=== PATIENT | female | born 1990 | race Caucasian/White ===

== ENCOUNTER → 2017-01-07 | Outpatient (CLI) | payer OTHER ==
[2017-01-07 19:15] LABS: CALCIUM OXALATE CRYSTALS LARGE; YEAST LIKE CELL URINE AUTO LARGE
--- NOTE | 2017-01-08 03:06 | REP ---
Clinical: Ureterolithiasis. Technique: Single supine view of the abdomen and pelvis. Findings: A 7 mm calcification overlies the right psoas muscle at the level of the L4 transverse process likely representing ureteral calculus. A 2 mm calcification is identified in the right belia pelvis likely representing phlebolith. Further evaluation of the urinary tract system is limited due to overlying bowel gas. No bowel obstruction. No organomegaly. Skeletal structures intact. Impression: Presumed 7 mm right ureteral calculus. Signed by Daron Queen MD 01/08/2017 02:57 A
== END ==
LOC: M SMT 15:48
PROVIDERS: ATTEND Nurse Practitioner Women's Health
DX: N13.2 Hydronephrosis with renal and ureteral calculous obstruction (principal)

== ENCOUNTER 2017-01-19 17:59 | Day surgery (SDC) | payer OTHER ==
[~2017-01-19] VITALS: Ht 160 cm; Wt 53.5 kg
[2017-01-19] MEDS ORDERED: HYDR-3713 PO (18:09)
[2017-01-19] MEDS ORDERED: [UNRECOGNIZED DRUG - OTHER] (18:09)
[2017-01-19] MEDS ORDERED: NS 1,000 ML IV SCH (18:57)
[2017-01-19] MEDS ORDERED: KETOROLAC 30 MG/ML VIAL (J1885) IV ONE (19:00)
[2017-01-19] MEDS ORDERED: MORPHINE 4 MG/ML 1ML SYRINGE IV ONE ×2 (19:00→20:30)
[2017-01-19] MEDS ORDERED: ONDANSETRON 4MG/2ML VIAL (J2405) IV ONE (19:00)
[2017-01-19 19:17] LABS: BASO % 0.3 % (0.0-1.0); EOS # 0.1 K/mm3 (0.0-0.50); EOS % 1.5 % (0.0-3.0); LARGE UNSTAINED CELL # 0.1 K/mm3 (0.0-0.4); LARGE UNSTAINED CELL % 1.3 % (0.0-4.0); LYMPH # 1.4 K/mm3 (1.5-6.5); MEAN CORPUSCULAR HEMOGLOBIN 31.5 pg (27.0-33.0); MEAN CORPUSCULAR HGB CONC 33.8 g/dl (32.0-36.5); MONO # 0.4 K/mm3 (0.0-0.8); MONO % 4.2 % (0.0-5.0); NEUTROPHILS # 7.4 K/mm3 (1.8-7.7); NEUTROPHILS % 77.8 % (36.0-66.0); PLATELET COUNT, AUTOMATED 251 k/mm3 (150-450); WHITE BLOOD COUNT 9.5 K/mm3 (4.0-10.0)
[2017-01-19 19:22] LABS: CALCIUM OXALATE CRYSTALS MODERATE
[2017-01-19 19:25] LABS: INR 0.97
[2017-01-19 19:37] LABS: CONTROL LINE HCG INT CTR LINE PRESENT
[2017-01-19 19:43] LABS: ALBUMIN 3.7 GM/DL (3.2-5.2); ALKALINE PHOSPHATASE 92 U/L (45-117); ALT/SGPT 21 U/L (12-78); AMYLASE 62 U/L (25-115); ANION GAP 8 MEQ/L (8-16); AST/SGOT 12 U/L (15-37); BILIRUBIN,DIRECT < 0.1 MG/DL (0.0-0.2); BILIRUBIN,TOTAL 0.3 MG/DL (0.2-1.0); BLOOD UREA NITROGEN 17 MG/DL (7-18); CALCIUM LEVEL 8.5 MG/DL (8.5-10.1); CARBON DIOXIDE LEVEL 26 MEQ/L (21-32); CHLORIDE LEVEL 108 MEQ/L (98-107); CREATININE FOR GFR 0.64 MG/DL (0.55-1.02); GLOMERULAR FILTRATION RATE > 60.0 (>60); GLUCOSE, FASTING 93 MG/DL (70-105); POTASSIUM SERUM 3.5 MEQ/L (3.5-5.1); SODIUM LEVEL 142 MEQ/L (136-145); TOTAL PROTEIN 7.4 GM/DL (6.4-8.2)
--- NOTE | 2017-01-19 20:07 | REP ---
Clinical: Right flank pain and renal colic. Comparison: 09/13/2015. Findings: Marked edematous enlargement to the right kidney with grade 4 hydroureteronephrosis is secondary to a 9 mm obstructing calculus in the distal right ureter (images 120 - 122). The left kidney and ureter appear normal and no further intrarenal, obstructing renal calculi are identified. The bladder is unremarkable. Liver, spleen, pancreas, gallbladder, and bilateral adrenal glands are normal for noncontrast evaluation. The enteric system is without obstruction or acute inflammatory process. Pelvis demonstrates normal uterus / adnexa with trace pelvic free fluid likely physiologic. No free air. No obvious retroperitoneal adenopathy. Abdominal aorta without aneurysm. Musculoskeletal structures demonstrate chronic L5 spondylolysis without spondylolisthesis. Lung bases are clear. Impression: 1. Marked right-sided obstructive uropathy with a 9 mm calculus in the distal right ureter approaching the ureterovesicle junction. No further intrarenal calculi or urinary tract pathology is appreciated by noncontrast evaluation. 2. 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 Signed by Daron Queen MD 01/19/2017 07:58 P
[2017-01-19] MEDS ORDERED: KETO10TAB PO (20:59)
[2017-01-19] MEDS ORDERED: LevoFLOXacin(LEVAQUIN)500 MG/100 ML BAG (J1956) As Ordered ONE (21:20)
[2017-01-19] MEDS ORDERED: CONRAY-60 60% 50ML VIAL (Q9961) As Ordered ONE (21:20)
[2017-01-19] MEDS ORDERED: LIDOCAINE 2% INJ 100 MG/5 ML SYRINGE As Ordered ONE (21:42)
[2017-01-19] MEDS ORDERED: dexameTHASONE 4 MG/ML 1ML VIAL (J1100) As Ordered ONE (21:42)
[2017-01-19] MEDS ORDERED: MIDAZOLAM INJ 2 MG/2 ML VIAL (J2250) As Ordered ONE (21:42)
[2017-01-19] MEDS ORDERED: PROPOFOL 200 MG/20 ML VIAL As Ordered ONE (21:42)
[2017-01-19] MEDS ORDERED: KETOROLAC 60 MG/2 ML VIAL (J1885) As Ordered ONE (21:42)
[2017-01-19] MEDS ORDERED: fentaNYL 100 MCG/2 ML INJECTION (J3010) As Ordered ONE (21:42)
[2017-01-19] MEDS ORDERED: ONDANSETRON 4MG/2ML VIAL (J2405) As Ordered ONE (21:42)
[2017-01-19] MEDS ORDERED: ONDANSETRON 4MG/2ML VIAL (J2405) IV PRN (22:15)
[2017-01-19] MEDS ORDERED: fentaNYL 100 MCG/2 ML INJECTION (J3010) IV PRN (22:15)
[2017-01-19] MEDS ORDERED: LR 1,000 ML IV SCH (22:15)
[2017-01-19] MEDS ORDERED: PERCOCET 5MG/325MG TAB PO PRN (22:15)
[2017-01-19 22:27] LABS: MEAN CORPUSCULAR HEMOGLOBIN 31.3 pg (27.0-33.0); MEAN CORPUSCULAR HGB CONC 32.8 g/dl (32.0-36.5); MEAN CORPUSCULAR VOLUME 95.3 fl (80.0-96.0); RED CELL DISTRIBUTION WIDTH 12.2 % (11.5-14.5)
[2017-01-19] MEDS ORDERED: oxyCODONE 5MG TAB PO PRN (22:30)
[2017-01-19 22:50] LABS: ANION GAP 5 MEQ/L (8-16); BLOOD UREA NITROGEN 18 MG/DL (7-18); CALCIUM LEVEL 7.3 MG/DL (8.5-10.1); CARBON DIOXIDE LEVEL 26 MEQ/L (21-32); CHLORIDE LEVEL 111 MEQ/L (98-107); CREATININE FOR GFR 0.66 MG/DL (0.55-1.02); GLOMERULAR FILTRATION RATE > 60.0 (>60); GLUCOSE, FASTING 106 MG/DL (70-105); POTASSIUM SERUM 3.9 MEQ/L (3.5-5.1); SODIUM LEVEL 142 MEQ/L (136-145)
[2017-01-19] MEDS: KCL 20MEQ IN D5/0.45NS 1000ML 1,000 ML IV SCH (23:28)
[2017-01-19 23:30] VITALS: BP 98/65
[2017-01-19] MEDS: ACETAMINOPHEN 650MG ER TAB (TYLENOL ARTHRITIS) PO SCH (23:58)
[2017-01-20] VITALS (8 sets, daily range): BP systolic 91–105; BP diastolic 50–60
[2017-01-20] MEDS ORDERED: ONDANSETRON 4MG/2ML VIAL (J2405) IV PRN (00:30)
[2017-01-20] MEDS ORDERED: ONDANSETRON 4MG/2ML VIAL (J2405) IV ONE (01:00)
[2017-01-20] MEDS: KETOROLAC 30 MG/ML VIAL (J1885) IV SCH ×2 (06:02→14:14)
[2017-01-20] MEDS: ACETAMINOPHEN 650MG ER TAB (TYLENOL ARTHRITIS) PO SCH ×2 (06:02→14:12)
[2017-01-20 07:25] LABS: MEAN CORPUSCULAR HEMOGLOBIN 31.2 pg (27.0-33.0); MEAN CORPUSCULAR HGB CONC 32.7 g/dl (32.0-36.5); MEAN CORPUSCULAR VOLUME 95.6 fl (80.0-96.0); RED CELL DISTRIBUTION WIDTH 12.2 % (11.5-14.5); WHITE BLOOD COUNT 7.4 K/mm3 (4.0-10.0)
[2017-01-20 07:46] LABS: ANION GAP 8 MEQ/L (8-16); BLOOD UREA NITROGEN 11 MG/DL (7-18); CALCIUM LEVEL 8.2 MG/DL (8.5-10.1); CARBON DIOXIDE LEVEL 25 MEQ/L (21-32); CHLORIDE LEVEL 109 MEQ/L (98-107); GLOMERULAR FILTRATION RATE > 60.0 (>60); GLUCOSE, FASTING 117 MG/DL (70-105); POTASSIUM SERUM 4.3 MEQ/L (3.5-5.1); SODIUM LEVEL 142 MEQ/L (136-145)
--- NOTE | 2017-01-20 08:01 | REP ---
Retrograde pyelogram one view: A single intraoperative fluoroscopic views performed during the retrograde pyelogram procedure. The procedure performed by the urologist, Dr. Sheffield. The single intraoperative film reveals a right ureteral stent with the proximal and distal pigtails in satisfactory locations. There is right hydronephrosis and hydroureter. Fluoroscopic exposure time is 42 seconds. The fluoroscopic images performed with last image hold technology. This requires no additional radiation. Signed by Kalia Salazar MD 01/20/2017 07:53 A
[2017-01-20] MEDS: KCL 20MEQ IN D5/0.45NS 1000ML 1,000 ML IV SCH (08:35)
[2017-01-20] MEDS ORDERED: PANTOPRAZOLE 40MG INJ (PROTONIX) (C9113) IV SCH (09:00)
--- NOTE | 2017-01-20 12:56 | RO ---
DATE OF SURGERY: 01/19/2017 PREOPERATIVE DIAGNOSES: Right hydronephrosis and right ureteral stone. POSTOPERATIVE DIAGNOSIS: Right hydronephrosis and right ureteral stone. FINDINGS: A 9 mm right distal ureteral stone. SURGERY PERFORMED: Cystoscopy plus right retrograde pyelogram plus right double J stent, #6-Mauritian [place] Cook. SURGEON: Elder Gill MD SILK SPREADER: None. ANESTHESIA: General. COMPLICATIONS: None. ESTIMATED BLOOD LOSS (EBL): N/A. HISTORY OF PRESENT ILLNESS: This is a 26-year-old female patient, who has a right hydronephrosis and right ureteral stone. The patient actively has severe flank pain; and for this reason, she came to the emergency department. A CT scan showed a 9 mm stone in the distal ureter with severe hydroureteronephrosis. For this reason, she was consented for a cystoscopy, right retrograde pyelogram, plus right double J stent placement. PROCEDURE DESCRIPTION: In a patient under general anesthesia, in supine modified low lithotomy position, after prepping and draping the area of concern, which included the entire genitalia and abdomen, we introduced a cystoscope, #21-Mauritian in diameter with a 30-degree lens under videoendoscopic guidance. The urethra and bladder neck were totally normal. The bladder had no tumors, no stones, no foreign objects. Both ureteral orifices were seen excreting clear urine. The right ureteral orifice was catheterized with a #5-Mauritian Pollack catheter, and then a retrograde pyelogram. It showed severe hydroureteronephrosis and a distal stone of about 9 mm in diameter. We then passed a guidewire up to the kidney and then took out the Pollack catheter and then passed a #6-Mauritian [place] stent up to the kidney. Once it was in good position, we took the guidewire out, could see the curl in the kidney and the curl in the bladder. We then proceeded to actually empty the bladder and took the cystoscope out. PLAN: The patient will stay overnight. She will have intravenous (IV) antibiotics. When once pain is tolerated with by mouth pain medication, she will be discharged home with by mouth pain medication and antibiotics, and we will schedule her for a followup at [facility] [place] for definite therapy of her right ureteral stone.
[2017-01-20] MEDS ORDERED: PERCOCET PO (17:03)
[2017-01-20] MEDS ORDERED: LEVA500T PO (17:03)
[2017-01-20] MEDS ORDERED: LevoFLOXacin IV 500 MG in APPROPRIATE DILUENT 1 EA IV SCH (18:00)
--- NOTE | 2017-01-21 22:14 | DSES ---
DATE OF ADMISSION: 01/19/2017 DATE OF DISCHARGE: 01/20/2017 ADMISSION DIAGNOSIS: Right hydronephrosis and right ureteral stone. POSTOPERATIVE DIAGNOSIS: Right hydronephrosis and right ureteral stone. SURGERY PERFORMED: Cystoscopy plus right retrograde pyelogram, plus right double-J stent placement and 6-Italian [place] Cook. ADMITTING SURGEON: Dr. Elder Gill. DISCHARGE SURGEON: Dr. Elder Gill. HISTORY OF PRESENT ILLNESS: A 26-year-old female patient who had severe right flank pain. She had a CT scan of abdomen and pelvis that shows a 9 mm distal ureteral stone and severe hydroureteronephrosis. For this reason, she has been taken to the operating room (OR) for cystoscopy, right retrograde pyelogram, plus right double-J stent placement. HOSPITALIZATION COURSE: The patient did very well. On postoperative day one, she was started on a regular diet. Pain was controlled with oral pain medications. She was voiding very well. For this reason, the patient requested to go home. We agreed upon this. She will be discharged home with the following medications: - Levaquin 500 mg one tablet by mouth daily for 10 days - Percocet 5/325 mg one tablet by mouth every six hours as needed for pain The patient will followup in 10 days at [facility] for definitive therapy of her right ureteral stone.
== END 2017-01-20 17:42 | disposition home or self-care (01) ==
LOC: M ED 19:20 → M OROP 21:13 → M PED 22:56 → M OROP 01-20 17:42
PROVIDERS: ATTEND Urology
DX: N13.2 Hydronephrosis with renal and ureteral calculous obstruction (principal)
CPT/HCPCS: 36415; 52332; 74176; 74420; 80048; 80076; 81001; 82150; 83690; 84703; 85025; 85027; 85610; 87086; 96374; 96375; 96376; 99284; C1726; C2617; C9113; J1100; J1885; J1956; J2250; J2405; J3010; Q9961

== ENCOUNTER → 2017-02-09 | Day surgery (SDC) | payer OTHER ==
[~2017-02-09] VITALS: Ht 160 cm; Wt 53.5 kg
[~2017-02-09] MED LIST: ACETAMINOPHEN TAB 650MG DOSE (2X325MG) PO SCH; CIPR500T3 PO; CIPROFLOXACIN 500 MG TAB PO SCH; CONRAY-60 60% 50ML VIAL (Q9961) As Ordered ONE; HYDR-3713 PO; KETO10TAB PO; KETOROLAC 60 MG/2 ML VIAL (J1885) As Ordered ONE; LEVA500T PO; LIDOCAINE 2% INJ 100 MG/5 ML SDV (FOR ANES.) As Ordered ONE; LR 1,000 ML IV ONE; LR 1,000 ML IV SCH; MIDAZOLAM INJ 2 MG/2 ML VIAL (J2250) As Ordered ONE; NAPR250T2 PO; NORCO, ANEXSIA 5/325MG TABLET (HYDROcodone/ACETAMINOPHEN) PO PRN; ONDANSETRON 4MG/2ML VIAL (J2405) As Ordered ONE; ONDANSETRON 4MG/2ML VIAL (J2405) IV PRN; PERCOCET PO; PROPOFOL 200 MG/20 ML VIAL As Ordered ONE; TYLE650T35 PO; [UNRECOGNIZED DRUG - OTHER]; dexameTHASONE 4 MG/ML 1ML VIAL (J1100) As Ordered ONE; fentaNYL 100 MCG/2 ML INJECTION (J3010) As Ordered ONE; fentaNYL 100 MCG/2 ML INJECTION (J3010) IV PRN; fentaNYL 250 MCG/5 ML INJECTION (J3010) As Ordered ONE
[2017-02-09 11:27] LABS: CONTROL LINE UCG INT CTR LINE PRESENT
[2017-02-09 14:10] VITALS: BP 109/58
--- NOTE | 2017-02-09 15:47 | REP ---
C-ARM VIEW ABDOMEN: C-arm view of the abdomen is performed. Right ureteral stent is seen with the proximal end coiled in the region of the right renal pelvis and the distal end coiled in the region of the urinary bladder. 17 seconds of fluoroscopy time was utilized. Signed by Kalia Ghosh MD 02/10/2017 07:38 P
--- NOTE | 2017-02-10 17:22 | RO ---
DATE OF PROCEDURE: 02/09/2017 PREPROCEDURE DIAGNOSIS: Right ureteral stone. POSTPROCEDURE DIAGNOSIS: Right ureteral stone. PROCEDURE: Cystoscopy, plus right ureteroscopy, plus right laser stone lithotripsy, plus right basket extraction of stones, plus right double J stent exchange, 6-Kyr[place]z [place] Cook. SURGEON: Dr. Elder Gill TISSUE TECHNOLOGIST: None. ANESTHESIA: General. COMPLICATIONS: None. ESTIMATED BLOOD LOSS: N/A. HISTORY OF THE PRESENT ILLNESS: This is a 26-year-old female patient that has a 1 cm right ureteral stone in the mid ureter. The patient has consented for cystoscopy, plus right retrograde pyelogram, plus a right ureteroscopy, plus a right laser stone lithotripsy, plus basket extraction of stones, plus right double J stent placement. DESCRIPTION OF PROCEDURE: In a patient under general anesthesia in supine modified low lithotomy position, after prepping and draping the area of concern, which included the entire genitalia and abdomen, we started by introducing a #21-Kyrgyz cystoscope with a 30 degree lens under videoendoscopic guidance. The urethra and bladder neck were totally normally. The bladder had a right double J stent in good position. With the endoscopic forceps we grabbed the double J stent out of the body of the patient and then passed a guidewire up to the kidney. We then proceeded to pass a right semirigid ureteroscope #7-Kyrgyz through the distal ureter parallel to the guidewire. We then visualized the stone. It was a large stone. We grabbed a holmium laser 200 micron probe through the semirigid ureteroscope and broke the stone into multiple pieces. At that moment and time we actively grabbed a 0-tip basket and grabbed the stones one by one out of the body of the patient. Once the ureter was cleared from any type of stone we went back and forth with a semirigid ureteroscope from the proximal ureter to the distal ureter back and forth and there were no stones left. At that moment in time we proceeded to take the ureteroscope and introduce a cystoscope. Following the guidewire we placed a right double J stent, a new one, #6-Kyr[place] Cook. One the stent was in the kidney we took the guidewire out and you could see the curl in the kidney and the curl in the bladder. We emptied the bladder and took the cystoscope out. PLAN: The patient will go home with antibiotics and pain medication. Followup with [facility] in one week for removal of right double J stent. There were no complications during surgery. The stone fragments for sent for biochemical analysis.
== END | disposition home or self-care (01) ==
LOC: M SDC 10:41
PROVIDERS: ATTEND Urology
DX: N20.1 Calculus of ureter (principal); Z87.440 Personal history of urinary (tract) infections
CPT/HCPCS: 52356; 74420; 82360; 84703; 88300; C2617; J0690; J1100; J1885; J2250; J2405; J3010; Q9961

== ENCOUNTER → 2017-02-24 | Outpatient (REF) | payer OTHER ==
[~2017-02-24] MED LIST changes: -ACETAMINOPHEN TAB 650MG DOSE (2X325MG) PO SCH; -CIPROFLOXACIN 500 MG TAB PO SCH; -CONRAY-60 60% 50ML VIAL (Q9961) As Ordered ONE; -KETOROLAC 60 MG/2 ML VIAL (J1885) As Ordered ONE; +LEVA1TAB2 PO; -LEVA500T PO; -LIDOCAINE 2% INJ 100 MG/5 ML SDV (FOR ANES.) As Ordered ONE; -LR 1,000 ML IV ONE; -LR 1,000 ML IV SCH; -MIDAZOLAM INJ 2 MG/2 ML VIAL (J2250) As Ordered ONE; -NAPR250T2 PO; +NAPR250T4 PO; -NORCO, ANEXSIA 5/325MG TABLET (HYDROcodone/ACETAMINOPHEN) PO PRN; -ONDANSETRON 4MG/2ML VIAL (J2405) As Ordered ONE; -ONDANSETRON 4MG/2ML VIAL (J2405) IV PRN; -PROPOFOL 200 MG/20 ML VIAL As Ordered ONE; -dexameTHASONE 4 MG/ML 1ML VIAL (J1100) As Ordered ONE; -fentaNYL 100 MCG/2 ML INJECTION (J3010) As Ordered ONE; -fentaNYL 100 MCG/2 ML INJECTION (J3010) IV PRN; -fentaNYL 250 MCG/5 ML INJECTION (J3010) As Ordered ONE
== END ==
LOC: M SMT 13:23
PROVIDERS: ATTEND Urology
DX: N13.2 Hydronephrosis with renal and ureteral calculous obstruction (principal)

== ENCOUNTER → 2019-02-03 | Outpatient (CLI) | payer OTHER ==
[2019-02-03 22:01] LABS: CHLAMYDIA DNA AMPLIFICATION NEGATIVE (NEGATIVE); GC DNA AMPLIFICATION NEGATIVE (NEGATIVE)
[2019-02-06 11:33] LABS: HEPATITIS C VIRUS ABY INDEX < 0.0 INDEX (<0.8); HIV 1&2 SCREEN CENTAUR NEGATIVE (NEGATIVE)
== END ==
LOC: M SMT 13:41
PROVIDERS: ATTEND Advanced Practice Midwife
DX: Z34.82 Encounter for supervision of other normal pregnancy, second trimester (principal)

== ENCOUNTER → 2019-02-15 | Outpatient (CLI) | payer OTHER ==
[2019-02-18 01:35] LABS: ANTI PARVO VIRUS LEVEL IGG 1.4 index (0.0-0.8); ANTI PARVO VIRUS LEVEL IgM 0.1 index (0.0-0.8)
== END ==
LOC: M WUC 17:29
PROVIDERS: ATTEND Obstetrics & Gynecology
DX: O09.212 Supervision of pregnancy with history of pre-term labor, second trimester (principal); Z3A.00 Weeks of gestation of pregnancy not specified

== ENCOUNTER → 2019-03-08 | Outpatient (CLI) | payer OTHER ==
[2019-03-08 20:24] LABS: HEMATOCRIT 35.5 % (36.0-47.0); HEMOGLOBIN 11.9 g/dl (12.0-15.5); MEAN CORPUSCULAR HGB CONC 33.5 g/dl (32.0-36.5); MEAN CORPUSCULAR VOLUME 98.3 fl (80.0-96.0); PLATELET COUNT, AUTOMATED 251 10^3/uL (150-450); RED BLOOD COUNT 3.61 10^6/uL (4.00-5.40); WHITE BLOOD COUNT 6.7 10^3/uL (4.0-10.0)
[2019-03-08 20:56] LABS: ALBUMIN 2.8 GM/DL (3.2-5.2); ALT/SGPT 16 U/L (12-78); AMYLASE 60 U/L (25-115); BILIRUBIN,TOTAL < 0.1 MG/DL (0.2-1.0); BLOOD UREA NITROGEN 6 MG/DL (7-18); CALCIUM LEVEL 8.4 MG/DL (8.5-10.1); CARBON DIOXIDE LEVEL 23 MEQ/L (21-32); CHLORIDE LEVEL 108 MEQ/L (98-107); CREATININE FOR GFR 0.48 MG/DL (0.55-1.30); GLOMERULAR FILTRATION RATE > 60.0 (>60); GLUCOSE, FASTING 64 MG/DL (70-100); LIPASE 150 U/L (73-393); SODIUM LEVEL 141 MEQ/L (136-145); TOTAL PROTEIN 6.4 GM/DL (6.4-8.2)
== END ==
LOC: M WUC 18:33
PROVIDERS: ATTEND Advanced Practice Midwife
DX: O26.892 Other specified pregnancy related conditions, second trimester (principal); R10.11 Right upper quadrant pain

== ENCOUNTER → 2019-03-10 | Outpatient (CLI) | payer OTHER, MEDICAID ==
[~2019-03-10] MED LIST changes: +CLAR5TAB11 PO; +MAPA500T2 PO
--- NOTE | 2019-03-10 09:43 | REP ---
RIGHT UPPER QUADRANT ULTRASOUND: Real-time sonographic evaluation of right upper quadrant performed. Patient is , and the heart rate is 139 beats per minute. The gallbladder demonstrates no evidence of intraluminal sludge or calculi, wall thickening, or pericholecystic fluid. There is no intrahepatic or extrahepatic biliary dilatation, common bile duct measuring 2 mm. Liver and pancreas demonstrate no gross mass. Right kidney demonstrates an apparent cyst medially 1 cm in diameter. There is mild right hydronephrosis and proximal hydroureter. Resistive index 0.65. IMPRESSION: No gallstones or biliary dilatation. Mild right hydronephrosis. Electronically Signed by Kalia Ghosh MD 03/11/2019 10:47 A
== END ==
LOC: M RAD 07:43
PROVIDERS: ATTEND Advanced Practice Midwife
DX: O26.833 Pregnancy related renal disease, third trimester (principal); N13.2 Hydronephrosis with renal and ureteral calculous obstruction; Z3A.00 Weeks of gestation of pregnancy not specified

== ENCOUNTER → 2019-03-13 | Outpatient (CLI) | payer OTHER, MEDICAID ==
[2019-03-13 12:35] LABS: HEMATOCRIT 35.6 % (36.0-47.0); HEMOGLOBIN 11.7 g/dl (12.0-15.5); MEAN CORPUSCULAR HGB CONC 32.9 g/dl (32.0-36.5); MEAN CORPUSCULAR VOLUME 97.3 fl (80.0-96.0); PLATELET COUNT, AUTOMATED 228 10^3/uL (150-450); RED BLOOD COUNT 3.66 10^6/uL (4.00-5.40); WHITE BLOOD COUNT 5.9 10^3/uL (4.0-10.0)
== END ==
LOC: M WUC 09:18
PROVIDERS: ATTEND Advanced Practice Midwife
DX: Z34.82 Encounter for supervision of other normal pregnancy, second trimester (principal); Z3A.00 Weeks of gestation of pregnancy not specified

== ENCOUNTER → 2019-03-15 | Outpatient (CLI) | payer OTHER, MEDICAID ==
[~2019-03-15] MED LIST changes: -CLAR5TAB11 PO; -MAPA500T2 PO
== END ==
LOC: M LAB 08:13
PROVIDERS: ATTEND Advanced Practice Midwife
DX: O09.212 Supervision of pregnancy with history of pre-term labor, second trimester (principal); Z3A.00 Weeks of gestation of pregnancy not specified

== ENCOUNTER → 2019-04-10 | Outpatient (CLI) | payer OTHER, MEDICAID ==
--- NOTE | 2019-04-11 08:23 | REP ---
Sonography: History: Supervision of growth study. Size date discrepancy. Findings: Scanning through the gravid uterus demonstrates a viable single intrauterine gestation in a cephalic lie. motion is observed and heart rate is recorded at 127 beats per minute. A fundal grade 1 placenta is seen without evidence of previa or abruption. Amniotic fluid is subjectively normal. Closed cervical length is measured transabdominally at 4.4 cm. No extrauterine abnormalities observed. Umbilical cord is seen draping across the shoulders. No anomaly is seen. Choroid plexus, cerebellum and posterior fossa, and upper and lower extremities are less than optimally visualized due to advanced gestational age and position. The following additional anatomic structures are identified and felt to be unremarkable: cranium, cavum, nuchal fold, face and profile, lungs, four-chamber heart with left and right ventricular outflow tract views, diaphragm, left-sided stomach, abdominal wall cord insertion, three-vessel umbilical cord, kidneys and bladder, spine. Biometry chart: BPD 7.6 cm = 30 weeks 4 days Head circumference 28.0 cm = 30 weeks 4 days Abdominal circumference 27.6 cm = 31 weeks 5 days Femur length 6.0 cm = 31 weeks 2 days Humeral length 5.4 cm = 31 weeks 4 days HC/AC ratio normal 1.01. Cephalic index normal 0.76. Estimated weight 1745 grams, 3 pounds 13 ounces, 43rd percentile for 31 weeks 2 days GABRIELLE normal 14.3 cm. S/D ratio in the umbilical cord artery by Doppler is normal at 2.91. Impression: Viable single intrauterine gestation at 30 weeks 5 days by today's composite criteria. COLLEEN by today's sonography June 14, 2019. Electronically Signed by Allen Schumacher MD 04/11/2019 07:25 P
== END ==
LOC: M RAD 15:50
PROVIDERS: ATTEND Advanced Practice Midwife
DX: O26.843 Uterine size-date discrepancy, third trimester (principal); Z3A.30 30 weeks gestation of pregnancy

== ENCOUNTER 2019-05-10 11:21 | Inpatient (IN) | payer OTHER, MEDICAID ==
[2019-05-10] VITALS (15 sets, daily range): BP systolic 97–140; BP diastolic 51–74
[~2019-05-10] VITALS: Ht 160 cm; Wt 69.2 kg
[~2019-05-10 11:21] MED LIST changes: -CLAR5TAB11 PO; -MAPA500T2 PO
[2019-05-10] MEDS ORDERED: MAPA500T2 PO (11:41)
[2019-05-10] MEDS ORDERED: CLAR5TAB11 PO (11:41)
[2019-05-10] MEDS ORDERED: LACTATED RINGER'S 1000 ML IV STA (12:15)
[2019-05-10] MEDS ORDERED: PENICILLIN G POTASSIUM IV 5 MU in D5W MINI-BAG PLUS 100 ML IV STA (12:15)
[2019-05-10 12:38] LABS: HEMATOCRIT 34.5 % (36.0-47.0); HEMOGLOBIN 11.2 g/dl (12.0-15.5); MEAN CORPUSCULAR HEMOGLOBIN 29.6 pg (27.0-33.0); MEAN CORPUSCULAR HGB CONC 32.5 g/dl (32.0-36.5); PLATELET COUNT, AUTOMATED 234 10^3/uL (150-450); RED BLOOD COUNT 3.79 10^6/uL (4.00-5.40); WHITE BLOOD COUNT 12.6 10^3/uL (4.0-10.0)
[2019-05-10] MEDS: BETAMETHASONE SOLUSPAN 6MG/ML INJ 5ML (J0702) IM SCH (12:38)
[2019-05-10] MEDS: LR 1,000 ML IV SCH ×2 (14:29→17:50)
[2019-05-10 15:08] LABS: APPEARANCE, URINE HAZY (CLEAR); BACTERIA, URINE AUTO 2+ (NEGATIVE); BILIRUBIN, URINE AUTO NEGATIVE (NEGATIVE); BLOOD, URINE BLOOD 1+ (NEGATIVE); COLOR, URINE YELLOW (YELLOW); GLUCOSE, URINE (UA) AUTO NEGATIVE (NEGATIVE); KETONE, URINE AUTO 1+ mg/dL (NEGATIVE); LEUKOCYTE ESTERASE, URINE AUTO 2+ (NEGATIVE); MUCUS, URINE SMALL (NEGATIVE); NITRITE, URINE AUTO NEGATIVE (NEGATIVE); PROTEIN, URINE AUTO NEGATIVE (NEGATIVE); RBC, URINE AUTO 3 /HPF (0-3); SPECIFIC GRAVITY URINE AUTO 1.012 (1.002-1.035); SQUAMOUS EPITHELIAL CELL UR AU 5 /HPF (0-6); UROBILINOGEN, URINE AUTO 0.2 mg/dL (0.0-2.0); WBC, URINE AUTO 29 /HPF (0-3)
[2019-05-10] MEDS ORDERED: CEPHALEXIN 500 MG CAP PO SCH (16:00)
[2019-05-10] MEDS: PENICILLIN G POTASSIUM IV 2.5 MU in IV 1 EA IV SCH ×2 (16:33→20:55)
--- NOTE | 2019-05-10 17:41 | HPE ---
DATE OF ADMISSION: 05/10/2019 Iva is a 29-year-old 5, para 3-1-0-4 at 35-2/7 weeks gestation, estimated date of confinement (EDC) of 06/12/2019 based on first trimester ultrasound. She presents to labor and delivery today with complaint of painful contractions that started at approximately 08:30. They have progressively become more uncomfortable as the morning has worn on. She denies vaginal bleeding and leakage of fluid. The fetus has been active. Her care was initiated with an alternate care provider in the first trimester with a transfer of care to [facility] at 21 weeks gestation. Her course complicated by umbilical hernia, transfer of care mid second trimester, and a history of delivery followed by two full term deliveries. She did decline Fagan injections to prevent labor. OBSTETRIC HISTORY: May 2008 at 37 weeks gestation, 5-pound, 9-ounce male, spontaneous vaginal delivery, [place], [place]. November 2009 at 32 weeks gestation, 4-pound, 4-ounce, spontaneous vaginal delivery, female at [facility]. August 2013 at 38 weeks gestation, 7-pound, 1 ounce male, spontaneous vaginal delivery. May 2016 at 38 weeks, 6-pound. 9-ounce male, spontaneous vaginal delivery. OBSTETRIC LABORATORY DATA: O+, antibody screen negative. Pap was normal. Rubella nonimmune, VDRL nonreactive. Urine culture contaminated. Hepatitis B surface antigen negative. HIV not documented. Hepatitis C not performed. Gonorrhea and Chlamydia negative. She did not have genetic serum screening laboratories done. Gestational diabetes screening abnormal at 143 with a normal three-hour glucose tolerance test, fasting 77, one-hour 183, two-hour 107, and three-hour 92. Her GBS is unknown and HIV was documented as negative on 02/03/2019. Hepatitis C antibody negative. PAST MEDICAL HISTORY: Kidney stones, abnormal Pap smear, and childhood varicella. SURGERIES: Breast augmentation, kidney stones, wisdom tooth extraction, colposcopy. FAMILY HISTORY: Fibromyalgia, diverticulitis, breast cancer, pancreatic cancer, colon cancer. SOCIAL HISTORY: The patient is . She does present today alone as her is at work with the plan to call him when she becomes closer to her delivery time. She is a nonsmoker. Denies alcohol and drug use. No history of any sexually transmitted infections. She does deny history of abuse, physical, sexual and emotional. ALLERGIES: ADAPALENE/BENZOYL PEROXIDE. CURRENT MEDICATION: vitamin. OBJECTIVE: Pulses 123, blood pressure is 118/66. She is alert and oriented times three. She does appear moderately uncomfortable with her contractions. heart rate is 150 with moderate variability, positive acceleration. No decelerations. Contractions are about every four minutes. They do palpate moderate. STERILE VAGINAL EXAMINATION: 6 cm dilated, 90% effaced, -2 station. No bloody show. Membranes are palpated and bulging. This is a change from her examination in the office where she was 4-5 at approximately 90 minutes prior. Her abdomen is gravid, cephalic presentation. Estimated weight is 6 pounds. ASSESSMENT: Intrauterine at 35-2/7 weeks. heart rate category 1. labor. PLAN: Admit the patient to labor and delivery. IV fluid bolus. Out of bed ad alejandrina. Clear liquid diet. Routine laboratory work. Betamethasone for lung maturity. The patient desires IV pain medications when she is more uncomfortable and farther along in her cervical dilation. I did review that it is possible for her labor to dissipate over time and if that was the case she would be discharged home. I did review the risks related to delivery and the fetus likely admission to intensive care unit. The patient has all of her questions answered. We will continue to observe. We will only consider artificial rupture of membranes (AROM) when she continued cervical change with delivery imminent.
[2019-05-10] MEDS ORDERED: diphenhydrAMINE 25 MG CAP PO ONE (23:15)
[2019-05-10] MEDS: ACETAMINOPHEN 500 MG TAB PO PRN (23:26)
[2019-05-11] VITALS (17 sets, daily range): BP systolic 81–128; BP diastolic 44–73
[2019-05-11] MEDS: PENICILLIN G POTASSIUM IV 2.5 MU in IV 1 EA IV SCH ×5 (00:52→17:01)
[2019-05-11] MEDS ORDERED: MORPHINE 10 MG/ML 1ML VIAL (J2270) IV ONE (02:30)
[2019-05-11] MEDS ORDERED: PROMETHAZINE INJ 25 MG/ML VIAL (J2550) IV ONE (02:30)
[2019-05-11] MEDS ORDERED: MORPHINE 10 MG/ML 1ML VIAL (J2270) SC ONE (02:30)
[2019-05-11] MEDS: ACETAMINOPHEN 500 MG TAB PO PRN ×2 (11:37→21:05)
[2019-05-11] MEDS: BETAMETHASONE SOLUSPAN 6MG/ML INJ 5ML (J0702) IM SCH (12:47)
[2019-05-11] MEDS ORDERED: OXYTOCIN 30 UNITS IN 0.9% NaCl 500ML IV BAG (J2590) As Ordered ONE (15:58)
--- NOTE | 2019-05-11 16:04 | IPNPDOC ---
Text Note Date of Service The patient was seen on 05/11/19. NOTE Subjective: 29-year-old at 35.3 EGA in labor. Patient is comfortable, breathing through contractions. Objective: SVE: /-1 FHR: 130 bpm, moderate variability, accelerations no decelerations, category 1 tracing Assessment/Plan: 29-year-old at 35.3 EGA in labor. -Patient has received 2 doses of betamethasone for lung maturity -AROM 1555 clear fluid -GBS pending, has received penicillin and has been adequately treated -Anticipate VS,Fishbone, I+O VS, Fishbone, I+O Vital Signs Date Time Temp Pulse Resp B/P (MAP) Pulse Ox O2 Delivery O2 Flow Rate FiO2 05/11/19 15:47 97.5 18 05/11/19 15:46 110 115/69 (84) I&O- Last 24 Hours up to 6 AM 05/11/19 05:59 Intake Total 2810 ml Output Total 1050 ml Balance 1760 ml GME ATTESTATION GME ATTESTATION My faculty preceptor for this patient encounter was physically present during the encounter and was fully available. All aspects of the patient interview, examination, medical decision making process, and medical care plan development were reviewed and approved by the faculty preceptor. The faculty preceptor is aware and concurs with the plan as stated in the body of this note and will attest to such by his/her cosignature. GENTRY ARAUZ DO May 11, 2019 16:04
[2019-05-11] MEDS ORDERED: OXYTOCIN DRIP 30 UNITS in IV 1 EA IV SCH (18:15)
[2019-05-11] MEDS ORDERED: IBUPROFEN 800 MG TAB PO PRN (18:15)
[2019-05-11] MEDS ORDERED: IBUPROFEN 600 MG TAB PO PRN (18:15)
[2019-05-11] MEDS ORDERED: RHOGAM 300 MCG (1500 IU) INJ (J2790) IM SCH (18:15)
[2019-05-11] MEDS ORDERED: LIDOCAINE 1% MDV 20ML VIAL INFIL ONE (18:15)
[2019-05-11] MEDS ORDERED: ACETAMINOPHEN TAB 650MG DOSE (2X325MG) PO PRN (18:15)
[2019-05-11] MEDS ORDERED: MEASLES,MUMPS,RUBELLA VACCINE INJ (MMR-II) (90707) SC SCH (18:15)
[2019-05-11] MEDS ORDERED: METHYLERGONOVINE MALEATE 0.2 MG TAB PO PRN (18:15)
--- NOTE | 2019-05-11 18:34 | DN ---
DATE: 05/11/2019 PREDELIVERY DIAGNOSIS: A 35 weeks 3 days gestation, labor. POSTDELIVERY DIAGNOSIS: Delivered. PROCEDURE: Spontaneous vaginal delivery. PROVIDER: Marilou Howell D.O. PGY-3 SET AND EXHIBIT DESIGNER: Dr. Hodan Mehta ANESTHESIA: Lidocaine 1%, local. ESTIMATED BLOOD LOSS: 100 mL. FINDINGS: Male infant weighing 6 pounds 7 ounces, or 2920 grams, scores 8 and 9. DELIVERY SUMMARY: After a short second stage, the patient spontaneously delivered a 6-pound 7-ounce male weighing 2920 grams without anesthesia at 1735 hours. The delivered left occiput anterior, restituted to left occiput transverse. There was no nuchal. The shoulders delivered with ease followed by the corpus. The infant cried spontaneously and was handed to the mother. scores were 8 and 9. The cord was doubly clamped and cut by the father of the baby. The placenta was delivered spontaneously at 1750 hours by Schultze mechanism and appeared to be intact. The patient received intravenous (IV) Pitocin immediately after delivery of the placenta. The patient had a small first-degree laceration at the base of the perineum that was repaired with 3-0 Rapide in the usual fashion. Sponges, instrument, and needle counts were correct. The parents have named their baby Niall. My faculty preceptor for this patient encounter was physically present during the encounter and was fully available. All aspects of the patient interview, examination, medical decision making process, and medical care plan development were reviewed and approved by the faculty preceptor. The faculty preceptor is aware and concurs with the plan as stated in the body of this note and will attest to such by his/her co-signature. ADEBAYO
[2019-05-11] MEDS: DOCUSATE SODIUM 100 MG CAP PO PRN (21:03)
[2019-05-11] MEDS: DIBUCAINE 1% OINTMENT 30GM TOP PRN ×2 (21:04→23:57)
[2019-05-12] MEDS: ACETAMINOPHEN 500 MG TAB PO PRN ×4 (04:07→23:57)
[2019-05-12] MEDS ORDERED: PERCOCET 5MG/325MG TAB PO ONE (06:00)
[2019-05-12 06:13] VITALS: BP 100/58
[2019-05-12] MEDS: PRENATAL VITAMINS CHEWABLE TABLET PO SCH (07:37)
--- NOTE | 2019-05-12 07:38 | IPNPDOC ---
Text Note Date of Service The patient was seen on 05/12/19. NOTE Postop Day 1 s/p ; uncomplicated S: pain severe with lots of cramping, lochia and bleeding decreasing, voiding spontaneously, ambulating without assistance, tolerating regular diet. O: vitals stable Heart: RRR, no murmurs Lungs: CTA bilaterally Abd: Fundus firm @ U Ext: no edema, nontender, negative Sergo's bilaterally A/P: 29 yo G5 now P5. day 1 s/p . Hemodynamically stable, afebrile. Recovering well. -Will try 1 percocet and two doses of toradol for pain, then switch back to motrin -Routine care and advancement. -Anticipate discharge tomorrow VS,Fishbone, I+O VS, Fishbone, I+O Vital Signs Date Time Temp Pulse Resp B/P (MAP) Pulse Ox O2 Delivery O2 Flow Rate FiO2 05/12/19 06:42 18 05/12/19 06:13 97.2 74 100/58 (72) 05/11/19 20:15 99 I&O- Last 24 Hours up to 6 AM 05/12/19 06:00 Intake Total 1550 ml Output Total 900 ml Balance 650 ml GME ATTESTATION GME ATTESTATION My faculty preceptor for this patient encounter was physically present during the encounter and was fully available. All aspects of the patient interview, examination, medical decision making process, and medical care plan development were reviewed and approved by the faculty preceptor. The faculty preceptor is aware and concurs with the plan as stated in the body of this note and will attest to such by his/her cosignature. GENTRY ARAUZ DO May 12, 2019 07:38
[2019-05-12] MEDS: KETOROLAC 30 MG/ML VIAL (J1885) IV PRN ×2 (10:35→16:40)
[2019-05-12 17:59] VITALS: BP 97/52
[2019-05-12] MEDS ORDERED: IBUPROFEN 600 MG TAB PO PRN (20:15)
[2019-05-12] MEDS ORDERED: IBUPROFEN 800 MG TAB PO PRN (20:15)
[2019-05-12] MEDS: DOCUSATE SODIUM 100 MG CAP PO PRN (23:57)
[2019-05-13 05:48] VITALS: BP 118/62
[2019-05-13] MEDS: ACETAMINOPHEN 500 MG TAB PO PRN (06:38)
[2019-05-13] MEDS ORDERED: ADACEL/BOOSTRIX VACCINE (DIPHTH/PERTUSS/ACELL/TETANUS)0.5ML SYR (90715) IM ONE (09:00)
[2019-05-13] MEDS: PRENATAL VITAMINS CHEWABLE TABLET PO SCH (09:34)
== END 2019-05-13 10:00 | disposition home or self-care (01) | DRG 807 ==
LOC: M LDO 11:21 → M LDI 12:09 → M PED 05-11 19:50 → M OBS 05-12 14:38
PROVIDERS: ADMIT Advanced Practice Midwife; ATTEND Advanced Practice Midwife
PROC: 10E0XZZ Delivery of Products of Conception, External Approach (ICD-10-PCS; principal; 2019-05-11)
PROC: 0HQ9XZZ Repair Perineum Skin, External Approach (ICD-10-PCS; 2019-05-11)
DX: O60.14X0 Preterm labor third trimester with preterm delivery third trimester, not applicable or unspecified (principal); Z37.0 Single live birth; O70.0 First degree perineal laceration during delivery; Z3A.35 35 weeks gestation of pregnancy; Z87.51 Personal history of pre-term labor; K42.9 Umbilical hernia without obstruction or gangrene; O99.62 Diseases of the digestive system complicating childbirth

== ENCOUNTER → 2019-05-10 | Outpatient (REF) | payer OTHER, MEDICAID ==
[~2019-05-10] MED LIST changes: +CLAR5TAB11 PO; +MAPA500T2 PO
== END ==
LOC: M LAB REF 12:47
PROVIDERS: ATTEND Advanced Practice Midwife
DX: O09.213 Supervision of pregnancy with history of pre-term labor, third trimester (principal)

== ENCOUNTER → 2019-09-13 | Outpatient (CLI) | payer OTHER, MEDICAID ==
[~2019-09-13] MED LIST changes: +CLAR5TAB11 PO; +MAPA500T2 PO
--- NOTE | 2019-09-13 18:09 | REP ---
Right axillary/breast sonography: History: Lump. Findings: Scanning of the right axilla in the area of the lump demonstrates three normal-appearing lymph nodes. These have echogenic hilar architecture and relatively thin cortical components. There measured as follows: 1.2 x 1.2 x 0.5, 2.0 x 1.8 x 0.5, and 1.4 x 1.2 x 0.5 cm respectively. Impression: BIRADS category II benign focused right axillary ultrasound. Clinical follow-up is advised. Electronically Signed by Allen Schumacher MD 09/13/2019 06:20 P
--- NOTE | 2019-09-14 02:57 | REP ---
Clinical: Pelvic pain. Technique: Transabdominal pelvic ultrasound with color Doppler evaluation of the ovaries. Findings: Heterogeneous retroflexed uterus measures 8.8 x 5.1 x 6.0 cm. Endometrial complex measures 11 mm thickness. No discrete uterine or endometrial abnormalities appreciated. The bilateral ovaries are normal in vascularity without torsion. Right ovary measures 3.3 x 1.3 x 2.2 cm (RI 0.58). Left ovary measures 3.0 x 1.4 x 1.8 cm (RI 0.42) and includes 1.6 x 1.0 x 1.2 cm complex likely physiologic hemorrhagic cyst. Small amount of free fluid identified in the posterior cul-de-sac and right belia pelvis. Impression: Essentially normal pelvic ultrasound. Small amount of free fluid is nonspecific.
== END ==
LOC: M WHC 14:22
PROVIDERS: ATTEND Advanced Practice Midwife
DX: R10.2 Pelvic and perineal pain (principal); N60.01 Solitary cyst of right breast

== ENCOUNTER → 2019-09-13 | Outpatient (REF) | payer OTHER, MEDICAID | LOC: M SFHCWAGY 13:24 | PROVIDERS: ATTEND Advanced Practice Midwife | DX: R10.2 Pelvic and perineal pain (principal) ==

== ENCOUNTER → 2019-09-22 | Outpatient (CLI) | payer OTHER, MEDICAID | LOC: M PLALAB 11:03 | PROVIDERS: ATTEND Surgery | DX: Z80.3 Family history of malignant neoplasm of breast (principal); Z80.0 Family history of malignant neoplasm of digestive organs; Z80.1 Family history of malignant neoplasm of trachea, bronchus and lung ==

== ENCOUNTER → 2019-09-29 | Outpatient (CLI) | payer OTHER, MEDICAID ==
--- NOTE | 2019-09-29 16:58 | REP ---
RIGHT BREAST ULTRASOUND: Real-time sonographic evaluation of right breast performed in the region of 10-o'clock, 8 cm from the nipple, where there is reportedly a palpable lump. At that location is an oval hypoechoic nodule. There is internal blood flow with Doppler evaluation. It measures 11 x 4 x 9 mm. This is nonspecific. There is an adjacent oval nodule with an echogenic hilum having an appearance characteristic of a lymph node, 14 x 5 x 12 mm. IMPRESSION: At the site of the palpable lump, 10-o'clock right breast, 8 cm from the nipple, there is a nonspecific oval hypoechoic nodule with internal blood flow. Ultrasound guided biopsy is recommended. ACR 4 suspicious. There is also an adjacent benign appearing lymph node in this region.
== END ==
LOC: M WHC 13:36
PROVIDERS: ATTEND Surgery
DX: N63.10 Unspecified lump in the right breast, unspecified quadrant (principal)

== ENCOUNTER → 2019-10-25 | Outpatient (CLI) | payer OTHER, MEDICAID ==
[~2019-10-25] MED LIST changes: +LIDOCAINE 1% MDV 20ML VIAL As Ordered ONE; +SODIUM BICARBONATE 8.4% INJ 50MEQ 50 ML VIAL As Ordered ONE
[2019-10-25 14:10] VITALS: BP 111/71
--- NOTE | 2019-10-25 19:33 | REP ---
Ultrasound-guided right axillary lymph node biopsy This procedure was performed by STEPHANIE Elizalde, under the direct supervision of Dr. Schumacher. The risks and the benefits of the procedure were explained to the patient and informed consent was obtained both verbally and written. Directly prior to the start of the procedure, a formal time out was completed in the procedure room. The right axillary lymph node was localized using ultrasound guidance. The skin was prepped and draped in a sterile fashion. 11 mL of buffered lidocaine was used as a local anesthetic. Using ultrasound guidance 8 fine-needle aspirations were obtained using 25 gauge needles of the right axillary lymph node. The patient tolerated the procedure well and there were no immediate complications. After the appropriate amount of monitored convalescence the patient was discharged from the department. Reviewed by STEPHANIE Elizalde 10/25/2019 03:05 P Electronically Signed by Allen Schumacher MD 10/25/2019 07:25 P
== END ==
LOC: M IRPRO 12:26
PROVIDERS: ATTEND Surgery
DX: D72.820 Lymphocytosis (symptomatic) (principal); N63.10 Unspecified lump in the right breast, unspecified quadrant

== ENCOUNTER → 2020-05-16 | Outpatient (CLI) | payer OTHER, MEDICAID ==
[~2020-05-16] MED LIST changes: +ACET650T61 PO; -LIDOCAINE 1% MDV 20ML VIAL As Ordered ONE; -SODIUM BICARBONATE 8.4% INJ 50MEQ 50 ML VIAL As Ordered ONE; -TYLE650T35 PO
--- NOTE | 2020-05-30 10:24 | REP ---
FOCUSED RIGHT BREAST ULTRASOUND HISTORY: Right breast cyst. COMPARISON: Made with prior sonography of the right breast dated 09/13/2019, 09/29/2019, and 10/25/2019. On 10/25/2019, the patient underwent ultrasound- guided needle biopsy procedure. SONOGRAPHIC FINDINGS: At 10 o'clock in the lateral aspect of the right breast, there is a hypoechoic structure without observable blood flow measuring 0.8 x 0.8 x 0.3 cm consistent with lymph node. There is a normal appearing lymph node also noted at the 10 o'clock position measuring 1.3 x 1.2 x 0.5 cm. In addition, a normal appearing 1.6 x 0.9 x 0.5 cm lymph node is seen. These demonstrate central hilar fat and unremarkable cortical margins. No sonographically suspicious finding. IMPRESSION: Normal appearing lymph nodes seen. BI-RADS Category 2 benign findings. MTDD
== END ==
LOC: M WHC 08:34
PROVIDERS: ATTEND Surgery
DX: Z87.42 Personal history of other diseases of the female genital tract (principal)

== ENCOUNTER → 2020-08-08 | Outpatient (CLI) | payer OTHER, MEDICAID ==
--- NOTE | 2020-08-08 12:47 | REP ---
INDICATION: HIGH RISK SCREENING AND PAIN RT LATERAL UPPER BREAST/AXILLA. Right axillary lump and pain x1 year. Ultrasound-guided needle biopsy September of 2019 benign. COMPARISON: No comparison mammography. Comparison breast sonography May 16, 2020 and 29 September 2019. TECHNIQUE: Bilateral CC and MLO) view(s) were taken. Magnified focal spot-compression images were obtained of the right breast in the area of the palpable lump and targeted right breast sonography was carried out. FINDINGS: Breast parenchyma is again noted to be extremely dense bilaterally in a pattern which may inhibit the sensitivity mammography. A skin marker is affixed to the skin at the site of the palpable lump. No mammographic abnormality is noted here or elsewhere. Implant margins are again noted to be smooth. No suspicious mammographic finding in either breast. The Volpara volumetric breast density pattern is D. Targeted right breast sonography: Scanning of the right axillary region in the area of the palpable lump demonstrates normal appearing lymph nodes. The largest node measures 1.5 x 1.3 x 0.5 cm. There is a 1.2 x 1.3 x 0.5 cm node. These are felt to be unchanged when compared with the prior study from 16 May 2020. IMPRESSION: BIRADS/ACR category 2 benign mammographic and targeted right breast sonographic findings.. This patient's Tyrer-Cuzick lifetime breast cancer risk assessment score is 9.4%. This mammogram was interpreted with the aid of an FDA-approved computer-aided detection system. The patient states she had a clinical breast exam in April of 2020. The patient letter being requested is M2 dense. RECOMMENDATION: Repeat screening mammography recommended 1 year (for women over 40). <Electronically signed by Bakari Schumacher > 08/08/20 [id number]
== END ==
LOC: M WHC 08:58
PROVIDERS: ATTEND Surgery
DX: Z12.31 Encounter for screening mammogram for malignant neoplasm of breast (principal)
CPT/HCPCS: 76642; 77066; G0279

== ENCOUNTER → 2021-03-31 | Outpatient (CLI) | payer OTHER, MEDICAID ==
[~2021-03-31] MED LIST changes: +NAPR-849 PO; -NAPR250T4 PO; +PROHANCE 279.3MG/ML 5ML VIAL As Ordered ONE
--- NOTE | 2021-03-31 12:12 | REP ---
INDICATION: HIGH RISK BREAST CA W/ DENSE BREAST TISSUE. COMPARISON: Mammogram 08/08/2020. TECHNIQUE: Three Meghan MRI imaging was performed with a dedicated breast coil. Axial, coronal, and sagittal T1 and T2 weighted scans were obtained with and without fat saturation in the usual fashion. The study includes dynamically acquired post gadolinium-enhanced imaging with image subtraction. Maximum intensity projection and multi planar reformation imaging is included as well. This study is interpreted with the aid of Loco2D, an FDA approved computer aided detection (CAD) software program, on a dedicated breast MRI workstation. The gadolinium enhancement dose is 10 mL of intravenous ProHance. FINDINGS: Bilateral breast implants are intact and symmetrical in appearance, with no evidence of intracapsular or extracapsular rupture. There is adjacent moderate fibroglandular tissue in both breasts. No significant cystic changes seen. There is no axillary adenopathy. There is mild background parenchymal enhancement. There is no suspicious enhancing mass or morphologic abnormality. IMPRESSION: BI-RADS category 2 benign bilateral breast MRI. No suspicious enhancing mass or morphologic abnormality. Bilateral breast implants are intact. <Electronically signed by Kalia Ghosh > 03/31/21 [id number]
== END ==
LOC: M RAD 02-14 10:49
PROVIDERS: ATTEND Surgery
DX: Z12.31 Encounter for screening mammogram for malignant neoplasm of breast (principal); Z98.82 Breast implant status; Z91.89 Other specified personal risk factors, not elsewhere classified
CPT/HCPCS: A9576; C8908

== ENCOUNTER → 2021-10-07 | Outpatient (CLI) | payer OTHER, MEDICAID ==
[~2021-10-07] MED LIST changes: -PROHANCE 279.3MG/ML 5ML VIAL As Ordered ONE
== END ==
LOC: M WHC 13:49
PROVIDERS: ATTEND Nurse Practitioner Women's Health
DX: R92.2 Inconclusive mammogram (principal); Z91.89 Other specified personal risk factors, not elsewhere classified; Z80.3 Family history of malignant neoplasm of breast
CPT/HCPCS: 77065; G0279

== ENCOUNTER 2021-11-18 10:21 | Inpatient (IN) | payer OTHER, MEDICAID ==
[~2021-11-18] VITALS: Ht 160 cm; Wt 56.7 kg
[2021-11-18] VITALS (9 sets, daily range): BP systolic 102–124; BP diastolic 59–79
[2021-11-18 10:56] LABS: BASO % 0.7 % (0.0-1.0); EOS # 0.1 10^3/uL (0.0-0.5); EOS % 1.2 % (0.0-3.0); HEMATOCRIT 45.7 % (36.0-47.0); HEMOGLOBIN 15.3 g/dl (12.0-15.5); LYMPH # 1.8 10^3/uL (1.5-5.0); LYMPH % 31.4 % (24.0-44.0); MEAN CORPUSCULAR HEMOGLOBIN 31.5 pg (27.0-33.0); MEAN CORPUSCULAR HGB CONC 33.5 g/dl (32.0-36.5); MEAN CORPUSCULAR VOLUME 94.2 fl (80.0-96.0); MONO # 0.4 10^3/uL (0.0-0.8); MONO % 6.9 % (2.0-8.0); NEUTROPHILS # 3.4 10^3/uL (1.5-8.5); NEUTROPHILS % 59.6 % (36.0-66.0); PLATELET COUNT, AUTOMATED 288 10^3/uL (150-450); RED BLOOD COUNT 4.85 10^6/uL (4.00-5.40); WHITE BLOOD COUNT 5.6 10^3/uL (4.0-10.0)
[2021-11-18] MEDS ORDERED: ISOVUE-370 76% 100ML VIAL As Ordered ONE (11:03)
[2021-11-18 11:23] LABS: INR 0.9; PARTIAL THROMBOPLASTIN TIME 28.3 SECONDS (25.9-37.0); PROTHROMBIN TIME 12.6 SECONDS (12.7-14.5)
[2021-11-18 11:25] LABS: CREATININE FOR GFR 0.72 MG/DL (0.55-1.30); GLOMERULAR FILTRATION RATE > 60.0 (>60)
[2021-11-18 11:31] LABS: CK-MB VALUE MASS < 1.0 NG/ML (<3.6); CPK CREATINE PHOSPHOKINASE 82 U/L (26-192); MB/CK RELATIVE INDEX 1.22 (< OR =4)
[2021-11-18] MEDS ORDERED: NS 500 ML IV ONE (12:25)
[2021-11-18] MEDS ORDERED: ALTEPLASE RECOMBINANT IV ONE (12:25)
[2021-11-18] MEDS ORDERED: ALTEPLASE 100MG VIAL IV ONE (12:25)
[2021-11-18] MEDS ORDERED: HOME MED LIST COMPLETE! XX SCH (13:20)
[2021-11-18 13:25] LABS: RSV AMPLIFICATION NEGATIVE (NEGATIVE)
[2021-11-18] MEDS ORDERED: SODIUM CHLORIDE 0.9% INJ 10 ML SYR IV ONE ×2 (14:00)
[2021-11-18] MEDS ORDERED: ACETAMINOPHEN 500 MG TAB PO ONE (15:00)
[2021-11-18] MEDS ORDERED: GABAPENTIN 100 MG CAP PO ONE (19:15)
[2021-11-19] VITALS (11 sets, daily range): BP systolic 95–137; BP diastolic 58–70
[2021-11-19] MEDS ORDERED: NEUR100C PO (08:16)
[2021-11-19] MEDS ORDERED: ACETAMINOPHEN 500 MG TAB PO ONE (09:35)
[2021-11-19] MEDS ORDERED: METOCLOPRAMIDE INJ 10MG/2ML VIAL (J2765 PER 1) IV ONE (09:45)
[2021-11-20 10:53] LABS: PTT LUPUS TYPE ANTICOAG SCREEN 1.1 (0-1.2)
== END 2021-11-19 14:27 | disposition home or self-care (01) | DRG 103 ==
LOC: M ED 10:21 → M ED INP 13:36 → ENRESERV 14:37 → M ICU 16:54
PROVIDERS: ADMIT Internal Medicine Nephrology; ATTEND Internal Medicine Nephrology
DX: G43.909 Migraine, unspecified, not intractable, without status migrainosus (principal); F41.9 Anxiety disorder, unspecified; Z79.899 Other long term (current) drug therapy

== ENCOUNTER → 2022-02-12 | Outpatient (CLI) | payer OTHER, MEDICAID ==
[~2022-02-12] MED LIST changes: +NEUR100C PO
== END ==
LOC: M LABSMTC 09:27
PROVIDERS: ATTEND Anesthesiology
DX: Z01.812 Encounter for preprocedural laboratory examination (principal); Z20.822 Contact with and (suspected) exposure to COVID-19

== ENCOUNTER 2022-02-17 07:59 | Day surgery (SDC) | payer OTHER, MEDICAID ==
[~2022-02-17] VITALS: Ht 160 cm; Wt 55.8 kg
[~2022-02-17 07:59] MED LIST changes: +LR 1,000 ML IV ONE
[2022-02-17] MEDS ORDERED: MIDAZOLAM INJ 2MG/2ML VIAL (J2250 PER 1MG) As Ordered ONE (08:08)
[2022-02-17] MEDS ORDERED: fentaNYL 100 MCG/2 ML INJECTION As Ordered ONE (08:08)
[2022-02-17] MEDS ORDERED: ROCURONIUM BROMIDE 50 MG/5 ML VIAL As Ordered ONE (08:08)
[2022-02-17] MEDS ORDERED: propofoL 200 MG/20 ML VIAL As Ordered ONE (08:08)
[2022-02-17] MEDS ORDERED: LIDOCAINE 2% 100MG/5ML SDV (FOR ANES.) As Ordered ONE (08:08)
[2022-02-17] MEDS ORDERED: dexameTHASONE 4 MG/ML 1ML VIAL (J1100 PER 1MG) As Ordered ONE (08:09)
[2022-02-17] MEDS ORDERED: ONDANSETRON 4MG/2ML VIAL As Ordered ONE (08:09)
[2022-02-17] MEDS ORDERED: LR 1,000 ML IV SCH ×2 (08:25→12:00)
[2022-02-17] MEDS ORDERED: BUPIVACAINE HCL 0.25% 30ML VIAL As Ordered ONE (10:06)
[2022-02-17] MEDS ORDERED: BUPIVACAINE LIPOSOME/PF 1.3% 20ML VIAL (13.3MG/ML)(EXPAREL) As Ordered ONE (10:06)
[2022-02-17] MEDS ORDERED: SCOPOLAMINE 1MG TRANSDERMAL PATCH TOP STA (10:22)
[2022-02-17] MEDS ORDERED: SCOPOLAMINE 1MG TRANSDERMAL PATCH As Ordered ONE (10:30)
[2022-02-17] MEDS ORDERED: ACETAMINOPHEN 1000MG 100ML IV BTL (OFIRMEV) (J0131 PER 10MG) As Ordered ONE (10:42)
[2022-02-17] MEDS ORDERED: SUGAMMADEX SODIUM 500 MG/5 ML VIAL (BRIDION) As Ordered ONE (10:52)
[2022-02-17] MEDS ORDERED: KETOROLAC 60MG 2ML VIAL As Ordered ONE (10:52)
[2022-02-17] MEDS ORDERED: ePHEDrine SULFATE 25 MG/5 ML(5MG/ML) SYRINGE As Ordered ONE (11:20)
[2022-02-17] MEDS ORDERED: PHENYLephrine 500MCG 5ML (100MCG/ML) SYRINGE As Ordered ONE (11:20)
[2022-02-17] MEDS ORDERED: METOCLOPRAMIDE INJ 10MG/2ML VIAL (J2765 PER 1) As Ordered ONE (11:44)
[2022-02-17] MEDS ORDERED: MORPHINE 2 MG/ML 1ML VIAL IV PRN (12:00)
[2022-02-17] MEDS ORDERED: ONDANSETRON 4MG/2ML VIAL IV PRN (12:00)
[2022-02-17] MEDS ORDERED: fentaNYL 100 MCG/2 ML INJECTION IV PRN (12:00)
[2022-02-17] MEDS ORDERED: oxyCODONE 5MG TAB PO PRN (12:00)
[2022-02-17] MEDS ORDERED: HYDR-3715 PO (12:12)
[2022-02-17 12:47] VITALS: BP 103/57
[2022-02-17] MEDS ORDERED: IBUPROFEN 600MG TAB PO PRN (13:00)
[2022-02-17] MEDS ORDERED: ACETAMINOPHEN TAB 650MG DOSE (2X325MG) PO PRN (13:00)
[2022-02-17] MEDS ORDERED: NORCO, ANEXSIA 5/325MG TABLET (HYDROcodone/ACETAMINOPHEN) PO PRN (13:05)
== END 2022-02-17 13:34 | disposition home or self-care (01) ==
LOC: M SDC 07:59
PROVIDERS: ATTEND Surgery
DX: K42.9 Umbilical hernia without obstruction or gangrene (principal); F41.9 Anxiety disorder, unspecified; G43.909 Migraine, unspecified, not intractable, without status migrainosus; Z86.73 Personal history of transient ischemic attack (TIA), and cerebral infarction without residual deficits
CPT/HCPCS: 49585; 81025; C9290; J0131; J1100; J1885; J2250; J2270; J2370; J2405; J2765; J3010

== ENCOUNTER → 2022-04-03 | Outpatient (CLI) | payer OTHER, MEDICAID ==
[~2022-04-03] MED LIST changes: +HYDR-3715 PO; -LR 1,000 ML IV ONE
== END ==
LOC: M WHC 12:22
PROVIDERS: ATTEND Nurse Practitioner Women's Health
DX: R92.8 Other abnormal and inconclusive findings on diagnostic imaging of breast (principal); Z98.82 Breast implant status
CPT/HCPCS: 77065; G0279

== ENCOUNTER → 2022-04-24 | Outpatient (CLI) | payer OTHER, MEDICAID ==
[~2022-04-24] MED LIST changes: +PROHANCE 279.3MG/ML 5ML VIAL ONE
== END ==
LOC: M PLAIMG 07:40
PROVIDERS: ATTEND Nurse Practitioner Women's Health
DX: R92.2 Inconclusive mammogram (principal); Z91.89 Other specified personal risk factors, not elsewhere classified; Z80.3 Family history of malignant neoplasm of breast; N63.20 Unspecified lump in the left breast, unspecified quadrant; Z98.82 Breast implant status
CPT/HCPCS: A9576; C8908

== ENCOUNTER → 2022-05-12 | Outpatient (CLI) | payer OTHER, MEDICAID ==
[~2022-05-12] MED LIST changes: -PROHANCE 279.3MG/ML 5ML VIAL ONE
== END ==
LOC: M RAD 14:47
PROVIDERS: ATTEND Surgery
DX: R92.8 Other abnormal and inconclusive findings on diagnostic imaging of breast (principal)

== ENCOUNTER → 2022-10-13 | Outpatient (CLI) | payer OTHER, MEDICAID | LOC: M WHC 16:32 | PROVIDERS: ATTEND Nurse Practitioner Women's Health | DX: Z12.31 Encounter for screening mammogram for malignant neoplasm of breast (principal); Z91.89 Other specified personal risk factors, not elsewhere classified; Z80.3 Family history of malignant neoplasm of breast ==

== ENCOUNTER → 2023-05-07 | Outpatient (CLI) | payer OTHER, MEDICAID | LOC: M WHC 09:41 | PROVIDERS: ATTEND Orthopaedic Surgery | DX: M79.661 Pain in right lower leg (principal); M79.89 Other specified soft tissue disorders; M25.571 Pain in right ankle and joints of right foot ==

== ENCOUNTER → 2023-08-31 | Outpatient (REF) | payer OTHER, MEDICAID | LOC: M SFHCWAGY 13:25 | PROVIDERS: ATTEND Nurse Practitioner Women's Health | DX: Z12.4 Encounter for screening for malignant neoplasm of cervix (principal) | CPT/HCPCS: 87624; G0123 ==

== ENCOUNTER 2023-09-27 09:16 | Day surgery (SDC) | payer OTHER, MEDICAID ==
[~2023-09-27] VITALS: Ht 160 cm; Wt 56.2 kg
[~2023-09-27 09:16] MED LIST changes: +NS 1,000 ML IV ONE; +ROPI5TAB19 PO
[2023-09-27] MEDS ORDERED: fentaNYL 100 MCG/2 ML INJECTION As Ordered ONE (10:20)
[2023-09-27] MEDS ORDERED: LIDOCAINE 2% 100MG/5ML SDV (FOR ANES.) As Ordered ONE (10:20)
[2023-09-27] MEDS ORDERED: propofoL 500 MG/50 ML VIAL As Ordered ONE (10:20)
[2023-09-27] MEDS ORDERED: PHENYLephrine 500MCG 5ML (100MCG/ML) SYRINGE As Ordered ONE (10:30)
[2023-09-27 10:43] VITALS: TEMP 97.5
[2023-09-27 11:01] VITALS: BP 91/50; O2SAT 100
== END 2023-09-27 11:20 | disposition home or self-care (01) ==
LOC: M OPP 09:16
PROVIDERS: ATTEND Internal Medicine Gastroenterology
DX: K64.8 Other hemorrhoids (principal); Q43.0 Meckel's diverticulum (displaced) (hypertrophic); Z80.0 Family history of malignant neoplasm of digestive organs; Z83.711 Family history of hyperplastic colon polyps; K92.1 Melena; R19.4 Change in bowel habit; K30 Functional dyspepsia; Z88.8 Allergy status to other drugs, medicaments and biological substances
CPT/HCPCS: 43235; 45378; J2371; J3010

== ENCOUNTER → 2023-10-14 | Outpatient (CLI) | payer OTHER, MEDICAID ==
[~2023-10-14] MED LIST changes: -NS 1,000 ML IV ONE
== END ==
LOC: M WHC 10:30
PROVIDERS: ATTEND Nurse Practitioner Women's Health
DX: Z12.31 Encounter for screening mammogram for malignant neoplasm of breast (principal); Z80.3 Family history of malignant neoplasm of breast; Z98.82 Breast implant status